=== PATIENT | female | born 1980 | race Caucasian/White ===

== ENCOUNTER 2019-09-05 15:35 | Observation (INO) | payer MEDICAID, SELFPAY ==
[2019-09-05 15:35] VITALS: BP 140/84; PULSE 110; RESP 24; TEMP 36.2; BMI 40.7
--- NOTE | 2019-09-05 15:56 | CT_ITS ---
STUDY: CT ABDOMEN AND PELVIS WITHOUT CONTRAST REASON FOR EXAM: Female, 39 years old. Flank pain. Currently taking antibiotics for urinary tract infection. History of prior appendectomy and fallopian tube removal. RADIATION DOSAGE (If Supplied By Facility): CTDIvol = ( 27.98 ) mGy, DLP = ( 1489.07 ) mGycm TECHNIQUE: Transaxial images were obtained from the dome of the diaphragm to the symphysis pubis without oral contrast, and without intravenous contrast. Sagittal and coronal images were reconstructed. Individualized dose optimization techniques were used for this CT. COMPARISON: None. FINDINGS: Mild posterior atelectatic changes. The visualized portions of the heart are within normal limits. Normal liver. Normal gallbladder and extrahepatic biliary system. Calcified granuloma of the spleen and a eggshell type calcification of the spleen measuring 1.8 cm Normal pancreas. Normal bilateral adrenal glands. Normal size of the right kidney. A numerous to 1 mm and dust like nonobstructing stones without hydronephrosis or ureteral stones. Normal size of the left kidney with numerous 1 to 2 mm and dust like nonobstructing renal stones without hydronephrosis or ureteral stones. Shallow cortical scar of the left kidney lower midpole. Normal visualized stomach. Normal small intestine. Normal colon. There is non-visualization of the appendix. Normal abdominal aorta. Normal inferior vena cava. Normal retroperitoneum. Nondistended urinary bladder. IUD in the lower endometrial space of the uterus. Surgical clips of the right adnexa. 7.5 x 2.0 x 4.2 cm cystic adnexal mass on the left. Minimal fatty umbilical hernia. Normal osseous structures. CT/Abdomen/Pelvis without Cont IMPRESSION: Multiple 1 to 2 mm and dust like nonobstructing calcifications of the kidneys bilaterally without hydronephrosis or ureteral stones. Nondistended urinary bladder. 7.5 x 2.0 x 4.2 cm tubular like structure of the left adnexa consistent with hydrosalpinx. Surgical clips of the right adnexa. Mirena IUD present in the uterus located in the lower endometrial space. Calcified granuloma of the spleen. Eggshell calcification of the spleen most likely secondary to old hematoma or related to granulomatous disease. Most likely insignificant finding. Electronically Signed: Catalina Rothman MD at 17:10 EST , Service support ,
--- NOTE | 2019-09-05 15:59 | ED.DCSUM_ITS ---
History of Present Illness Chief Complaint: Abd Pain Informant: Patient - Abdominal Pain/Flank Pain Onset: Yesterday Context: Gradual Onset Timing: Continuous Quality: Aching, Sharp Location: Right Flank Current Severity: Severe Maximum Severity: Severe Worsened by: Nothing Relieved by: Nothing - Nausea/Vomiting/Emesis GI Symptom: Nausea. Negative for: Vomiting Onset: Yesterday Associated Symptoms: Hematuria Narrative: Patient is a 39-year-old female presenting with persistent/worsening right flank pain. Patient was diagnosed with urinary tract infection at [facility] yesterday morning. Patient was started on Keflex, Pyridium and Tylenol. Patient states she is taking a total of 3 doses of Keflex. She notes that while she was there she was having a lot of right flank pain and that pain has persisted/worsened. She has associated nausea. Patient states the pain is constant. It does not wax and wane in intensity. She does have some radiation of pain down to her right thigh. She denies any abnormal vaginal bleeding or discharge. She states is not concern at all for sexually transmitted infection. Patient had negative urine test yesterday. Urinalysis reviewed which showed positive nitrates, moderate leukoesterase 5-10 white blood cells 2+ bacteria and loaded red blood cells. Patient notes she has a family history of kidney stones. She states in December she was admitted for sepsis but does not know what caused the sepsis. Patient denies any other complaints or concerns at this time. Past Medical History - Allergies and Home Meds Allergies/Adverse Reactions: Allergies No Known Allergies Allergy (Verified 09/05/19 15:38) Past Medical History: - - Sepsis, urinary tract infections Surgical History: - - Partial salpingectomy, D&C, appendectomy Lives: With Family Alcohol: None - Family History Maternal Family History: Reports: Diabetes Review of Systems General: Reports: Chills. Denies: Fever, Sweats Eyes: Denies: Visual changes - bilaterally, Diplopia ENT: Denies: Rhinorrhea, Sore throat Cardiovascular: Denies: Chest pain, Palpitations Respiratory: Denies: Dyspnea, Cough, Dyspnea on exertion Gastrointestinal: Reports: Abdominal pain - Right flank, Nausea. Denies: Vomiting, Diarrhea, Melena, Hematochezia Genitourinary: Reports: Hematuria. Denies: Dysuria, Frequency Musculoskeletal: Denies: Back pain, Extremity Pain Skin: Denies: Rash, Wounds Neurological: Denies: Headache, Weakness, Numbness Physical Exam Vital Signs/Narrative: Vital Signs Temp Pulse Resp BP 09/05/19 15:35 97.1 F L 110 H 24 H 140/84 H Inital Vital Signs reviewed: Yes General: Well nourished, Well developed, - - Patient moaning in bed Head: Normocephalic, Atraumatic Eyes: Perrl, EOMI ENT: Moist mucous membranes, No rhinorrhea Neck: Supple, Nontender Cardiovascular: Regular rate, Regular rhythm, No murmurs Respiratory: No distress, CTA bilaterally, Chest nontender Abdomen: Soft, Nondistended, Normal bowel sounds, Tender - right lateral/flank, suprapubic. Negative for: Guarding, Rebound tenderness Back: Nontender, Normal Inspection, CVA tenderness - right Extremities: Nontender, No edema Skin: Normal color, No rash Neurological: Alert, Oriented x3, Cranial nerves II-XII grossly intact, Normal Strength, Normal Sensation Psychological: Normal affect, - - anxious Diagnostic/Tx/Re-eval Clinical Impression(s) from Imaging Studies Abdomen/Pelvis CT 09/05/19 15:56 IMPRESSION: Multiple 1 to 2 mm and dust like nonobstructing calcifications of the kidneys bilaterally without hydronephrosis or ureteral stones. Nondistended urinary bladder. 7.5 x 2.0 x 4.2 cm tubular like structure of the left adnexa consistent with hydrosalpinx. Surgical clips of the right adnexa. Mirena IUD present in the uterus located in the lower endometrial space. Calcified granuloma of the spleen. Eggshell calcification of the spleen most likely secondary to old hematoma or related to granulomatous disease. Most likely insignificant finding. Electronically Signed: Catalina Rothman MD at 17:10 EST , Service support , Laboratory Data 09/05/19 09/05/19 09/05/19 15:50 15:50 15:50 WBC 10.4 RBC 4.18 L Hgb 9.3 L Hct 31.8 L MCV 76.1 L MCH 22.2 L MCHC 29.2 L RDW Std Deviation 44.9 H RDW Coeff of Andrew 16.5 H Plt Count 423 MPV 9.1 Immature Gran % (Auto) 0.800 Neut % (Auto) 71.1 H Lymph % (Auto) 15.1 L Eddy % (Auto) 8.8 Eos % (Auto) 3.5 Baso % (Auto) 0.7 Absolute Neuts (auto) 7.4 Absolute Lymphs (auto) 1.56 Nucleated RBC % 0 ESR Sodium 139 Potassium 3.6 Chloride 107 Carbon Dioxide 25.0 Anion Gap 7 BUN 9 Creatinine 0.65 Estim Creat Clear Calc 106.63 Est GFR (MDRD) Af Amer 132 Est GFR (MDRD) Non-Af 109 BUN/Creatinine Ratio 13.9 Glucose 102 Lactic Acid Calcium 8.5 Iron 16 L TIBC 489 H Iron Saturation 3.3 L Ferritin 6 L Total Bilirubin 0.20 AST 11 L ALT 18 Alkaline Phosphatase 92 C-React Prot Ext Range Total Protein 7.2 Albumin 3.5 Globulin 3.7 Albumin/Globulin Ratio 0.9 Urine Color Urine Clarity Urine pH Ur Specific [place] Urine Protein Urine Glucose (UA) Urine Ketones Urine Occult Blood Urine Nitrite Urine Bilirubin Urine Urobilinogen Ur Leukocyte Esterase Urine RBC Urine WBC Ur Squamous Epith Cells Urine Bacteria Urine Mucus Urine Test Chlam trachomat DNA PCR N.gonorrhoeae DNA (PCR) 09/05/19 09/05/19 09/05/19 15:50 15:50 16:00 WBC RBC Hgb Hct MCV MCH MCHC RDW Std Deviation RDW Coeff of Andrew Plt Count MPV Immature Gran % (Auto) Neut % (Auto) Lymph % (Auto) Eddy % (Auto) Eos % (Auto) Baso % (Auto) Absolute Neuts (auto) Absolute Lymphs (auto) Nucleated RBC % ESR 59 H Sodium Potassium Chloride Carbon Dioxide Anion Gap BUN Creatinine Estim Creat Clear Calc Est GFR (MDRD) Af Amer Est GFR (MDRD) Non-Af BUN/Creatinine Ratio Glucose Lactic Acid 1.0 Calcium Iron TIBC Iron Saturation Ferritin Total Bilirubin AST ALT Alkaline Phosphatase C-React Prot Ext Range 78.80 H Total Protein Albumin Globulin Albumin/Globulin Ratio Urine Color Urine Clarity Urine pH Ur Specific [place] Urine Protein Urine Glucose (UA) Urine Ketones Urine Occult Blood Urine Nitrite Urine Bilirubin Urine Urobilinogen Ur Leukocyte Esterase Urine RBC Urine WBC Ur Squamous Epith Cells Urine Bacteria Urine Mucus Urine Test Chlam trachomat DNA PCR N.gonorrhoeae DNA (PCR) 09/05/19 09/05/19 16:00 16:00 WBC RBC Hgb Hct MCV MCH MCHC RDW Std Deviation RDW Coeff of Andrew Plt Count MPV Immature Gran % (Auto) Neut % (Auto) Lymph % (Auto) Eddy % (Auto) Eos % (Auto) Baso % (Auto) Absolute Neuts (auto) Absolute Lymphs (auto) Nucleated RBC % ESR Sodium Potassium Chloride Carbon Dioxide Anion Gap BUN Creatinine Estim Creat Clear Calc Est GFR (MDRD) Af Amer Est GFR (MDRD) Non-Af BUN/Creatinine Ratio Glucose Lactic Acid Calcium Iron TIBC Iron Saturation Ferritin Total Bilirubin AST ALT Alkaline Phosphatase C-React Prot Ext Range Total Protein Albumin Globulin Albumin/Globulin Ratio Urine Color Yellow Urine Clarity Sl. Cloudy Urine pH 6.0 Ur Specific [place] 1.025 Urine Protein 30 H Urine Glucose (UA) Normal Urine Ketones Negative Urine Occult Blood 250 H Urine Nitrite Positive H Urine Bilirubin Negative Urine Urobilinogen Normal Ur Leukocyte Esterase 100 H Urine RBC > 100 SEEN Urine WBC 0-5 SEEN Ur Squamous Epith Cells 0-5 SEEN Urine Bacteria 1+ Urine Mucus 1+ Urine Test Negative Chlam trachomat DNA PCR Negative N.gonorrhoeae DNA (PCR) Negative - Medical Decision Making Patient is evaluated for persistent right flank pain and urinary symptoms. She appears significantly uncomfortable and is relatively normal physical exam. She does have tenderness in her suprapubic region and right flank. She is afebrile. His normal white blood cell count. Results are reviewed from yesterday at [facility] which shows urine consistent with UTI with positive nitrates and leuk esterase. It does not appear that a urine culture was sent. Urine was negative yesterday but is repeated and is still negative. Urinalysis continues to show nitrates and leuk esterase. Lactate is normal. Patient has had 3 doses of antibiotics before arrival but is having worsening pain. CT of the abdomen and pelvis is performed concerned for septic stone. This is largely negative. She does have an adnexal mass on the left side consistent with hydrosalpinx. On pelvic exam patient does not have any purulence vaginal discharge, cervical motion tenderness or left adnexal tenderness. Discussed with OB on-call, , who suggest patient receive a nonemergent pelvic ultrasound and will need outpatient follow-up for further evaluation. We agreed that this does not seem like the source of her pain as it is all clearly right-sided. Patient will be admitted to the hospital for further pain management and evaluation of the cause of her pain. This might be pyelonephritis but I worry that there could be another process yet to be determined. Patient is stable for the general medical floor at time of disposition. She is hemodynamically stable in the emergency room. She is given a dose of Toradol. ED Disposition - Plan for ED Patient: Disposition: Acute Care Hospital [facility] Diagnosis: Pyelonephritis, Hydrosalpinx
[2019-09-05] MEDS: Morphine 4 MG/ML Syringe IV ×3 (16:09→22:05)
[2019-09-05] MEDS: 0.9% Normal Saline 1,000 ML 1000 ML IV (16:09)
[2019-09-05] MEDS: Ondansetron 4 MG/2 ML Vial IV (16:09)
[2019-09-05 16:16] LABS: Color, Urine Yellow (Yellow); Glucose, Dipstick Normal (Normal); Ketone-Dipstick Negative (Negative); Leukocyte Esterase-Dipstick 100 /ul (Negative); Nitrite-Dipstick Positive (Negative); Occult Blood-Urine 250 /ul (Negative); Protein-Dipstick 30 mg/dl (Negative); Specific Gravity, Urine 1.025 (1.002-1.030); Urine Bilirubin Dipstick Negative (Negative); Urine Clarity Sl. Cloudy (Clear); Urine Urobilinogen Normal (Normal)
[2019-09-05 16:17] LABS: Internal QC Validated? YES +Cl - CLEAR BKGD; Pregnancy, Urine Negative Negative
[2019-09-05 16:25] LABS: Absolute Lymphocyte Count 1.56 X10^3/uL (0.83-4.51); Absolute Neutrophil Count 7.4 X10^3/uL (2.0-7.7); Basophil# 0.07 X10^3/uL; Basophil% 0.7 % (0-1); Eosinophil# 0.36 X10^3/uL; Eosinophils% 3.5 % (0-5); Hematocrit 31.8 % (37-47); Hemoglobin 9.3 g/dL (12.0-15.0); Lymphocyte # 1.56 X10^3/ul (4.0); Lymphocyte % 15.1 % (19-41); Mean Corp Hgb Conc 29.2 g/dL (32-36); Mean Corpuscular Hgb 22.2 pg (27.0-32.0); Mean Corpuscular Volume 76.1 fL (81-99); Mean Platelet Vol. 9.1 fl (6.2-12.0); Monocyte# 0.91 X10^3/uL; Monocyte% 8.8 % (0-10); NRBC Flagged by Analyzer 0 % (0-5); Neutrophil # 7.38 X10^3/uL (2.7-7.7); Neutrophil % 71.1 % (47-70); Platelet Count 423 K/mm3 (150-450); RBC Distribution Width CV 16.5 % (11.6-14.6); RBC Distribution Width SD 44.9 fl (35.1-43.9); Red Blood Count 4.18 M/mm3 (4.2-5.4); White Blood Count 10.4 K/mm3 (4.4-11.0)
[2019-09-05 16:34] LABS: Red Blood Cells-Urine > 100 SEEN /hpf (0-5); White Blood Cells 0-5 SEEN /hpf (0-5)
[2019-09-05 16:35] LABS: Bacteria 1+ /hpf (None Seen); Mucous, Urine 1+ /hpf (<or=2+); Squamous Epithelial Cells - UA 0-5 SEEN /hpf (5-10)
[2019-09-05 16:44] LABS: ALB/GLOB Ratio 0.9 RATIO (0.9-2.4); AST(SGOT) 11 U/L (15-37); Alanine Aminotransfer ALT/SGPT 18 U/L (13-56); Albumin, Serum 3.5 g/dL (3.2-5.0); Alkaline Phosphatase 92 U/L (45-117); Anion Gap 7 (5-15); BUN 9 mg/dL (7-18); BUN/Creat Ratio 13.9 RATIO (10-20); Calcium,Total 8.5 mg/dL (8.5-10.1); Chloride 107 mmol/L (98-107); Creatinine, Serum 0.65 mg/dL (0.55-1.02); EST Glomerular Filtration Rate 109 mL/min (>60); Est Glom Filt Rate - Afr Amer 132 mL/min (>60); Estimated Creatinine Clearance 106.63 ml/min; Globulin 3.7 g/dL (2.2-4.2); Glucose 102 mg/dL (74-106); Potassium 3.6 mmol/L (3.5-5.1); Protein, Total 7.2 g/dL (6.4-8.2); Sodium Level 139 mmol/L (136-145)
[2019-09-05] MEDS: Ceftriaxone 1 GM/50 ML BAG IV (19:04)
[2019-09-05 19:07] VITALS: BP 148/80; PULSE 87; RESP 16; O2SAT 97
[2019-09-05 19:55] LABS: Chlamydia Trachomatis by PCR Negative (Negative); Neisserai gonorrhoeae by PCR Negative (Negative); Probe Check PASS; Sample Adequacy Control PASS; Specimen Processing Control PASS
--- NOTE | 2019-09-05 20:02 | PCM.HP.STD ---
Problem List (1) Pyelonephritis Status: Acute (2) Hydrosalpinx Status: Acute (3) Morbid obesity Status: Chronic (4) Microcytic anemia Status: Chronic (5) Tobacco dependence due to cigarettes Status: Chronic (6) Nephrolithiasis Status: Chronic History of Present Illness Date of Admission: 09/05/19 Chief Complaint: R flank and R pelvic pain. The patient is a 39 year old F with a past medical history of morbid obesity, nephrolithiasis, urinary tract infections, nicotine dependence with cigarettes and microcytic anemia who presented to the emergency department at [facility] on 09/05/2019 complaining of severe right flank pain and right lower quadrant/pelvic pain. She was seen at the emergency department at [facility] on 09/04/2019 and was started on antibiotics for presumed cystitis. She has had 3 doses of Keflex. The pain is worse today and it is associated with nausea but no emesis. She denies fevers or shaking chills but has been taking Motrin for pain. Vital signs at presentation to the emergency department were temperature 97.1, pulse rate 110, blood pressure 140/84, respiratory rate 24 and she was 97% saturated on room air. Respiratory rate following control of pain dropped to 16. White blood cell count was 10.4 with 71% neutrophils. Hemoglobin was 9.3 with an MCV of 76.1 and platelets were within normal limits. BMP was unremarkable. LFTs were normal. A clean-catch urine showed a specific gravity of 1.025 and there were greater than 100 RBCs per high power field and 0-5 WBCs per high-power field with 1+ bacteria. Chlamydia trachomatis DNA PCR and Neisseria gonorrhea DNA PCR are pending. CT scan of the abdomen and pelvis without contrast showed multiple 1 to 2 mm nonobstructing calcifications of both kidneys and a nondistended urinary bladder. There was no evidence of hydronephrosis or ureteral stones. There was a 7.5 x 2 x 4.2 cm tubular masslike structure in the left adnexa consistent with hydrosalpinx. There are surgical clips in the right adnexa secondary to excision of the fallopian tube in the past due to ectopic . She was given a few doses of MS 4 mg and she is still c/o severe pain. She received Rocephin in the ED. She is being admitted for observation for suspected partially treated pyelonephritis. She has noticed blood in her urine but, she does not know if she is on her period at the present time. . Past Medical History Past Medical History (Chronic Problems): Chronic Problems Morbid obesity (Chronic) Microcytic anemia (Chronic) Tobacco dependence due to cigarettes (Chronic) Nephrolithiasis (Chronic) Allergies No Known Allergies Allergy (Verified 09/05/19 15:38) Surgical History: - - Partial salpingectomy R for ectopic , D&C, appendectomy Psychiatric History: No pertinent psych hx [employer]ORER [employer] History: - - Right salpingectomy for ectopic Lives: With Family Smoking Status: Current every day smoker Tobacco Use: Cigarettes Alcohol: None Drugs: None - *Family History Maternal History Items: Diabetes Review of Systems Constitutional: Reports: Anorexia, Malaise. Denies: Chills, Fever, Weight Change HEENT: Denies: Head Aches, Sinus Congestion, Sinus Drainage Cardiovascular: Denies: Chest Pain, Edema, Light Headedness, Palpitations Respiratory: Denies: Cough, Shortness of breath at rest, Sputum production Gastrointestinal: Reports: Abdominal Pain, Nausea. Denies: Diarrhea, Vomiting Genitourinary: Reports: Hematuria. Denies: Dysuria, Frequency Gynecological: Denies: Vaginal discharge Musculoskeletal: Denies: Joint Pain, Joint Tenderness Skin: Denies: Rash, Wounds Neurological: Denies: Numbness, Tingling, Focal weakness Psychiatric: Denies: Anxiety, Depression, Homicidal Ideations, Suicidal Ideations Endocrine: Denies: Change in Body Habitus Hematologic/ Lymphatic: Denies: Easy Bruising, Easy Bleeding, Hx of blood clot VTE Information - Inpt Only VTE Present on Admission: No VTE Mechan Device Prophylaxis: Knee High ARNAV Hose VTE Pharm Prophylaxis ordered?: Yes Patient Problems: Active and Suspected Problems Pyelonephritis (Acute) Hydrosalpinx (Acute) - Physical Exam Vitals/I&O's: Vital Signs Temp Pulse Resp BP Pulse Ox 97.1 F L 87 16 148/80 H 97 09/05/19 15:35 09/05/19 19:07 09/05/19 19:07 09/05/19 19:07 09/05/19 19:07 Oxygen Delivery Method Room Air Weight: 244 lb 11.41 oz Body Mass Index (BMI) 40.7 Intake and Output for Last 24 Hours 09/03/19 09/04/1909/05/19 23:59 23:59 23:59 Intake Total 50 / 50 Balance 50 / 50 General: Alert, Oriented x3, Cooperative, Well developed, Well nourished, - - She appears pale and to be in significant pain. HEENT: Atraumatic, PERRLA, EOMI, Normocephalic Oral: Dry Mucosa Neck: Supple, No JVD, Negative Carotid Bruits, No Nodes, No Nuchal Rigidity, Trachea Midline Lungs: Clear to auscultation, Normal air movement Cardiovascular: Regular rate, Regular Rhythm, Normal S1, Normal S2, Murmur - 1-2 systolic ejection murmur at the second right intercostal space with radiation to the lower left sternal border and apex, No rub noted, No Gallop Abdomen: Bowel Sounds Present, Soft, Non-Distended, Tender - She has costovertebral angle tenderness on the right and the pain radiates around the side and into the right side of the pelvis. No guarding with palpation but she did flinch with palpation of the right costovertebral angle. Extremities: No clubbing, No cyanosis, No edema, Capillary Refill Less than 3 Seconds Skin: No rashes, No breakdown Musculoskeletal: No Tenderness to Palpation of Joints or Extremities, No Muscle Wasting Neurological: Cranial nerves II-XII grossly intact, Neuro grossly intact Psych/Mental Status: Normal Affect, Appropriate Microbiology Past 72 Hours 09/05/19 18:10 Genital vaginal Wet Prep - Final Laboratory Results 09/05/19 15:50: WBC 10.4, RBC 4.18 L, Hgb 9.3 L, Hct 31.8 L, MCV 76.1 L, MCH 22.2 L, MCHC 29.2 L, RDW Std Deviation 44.9 H, RDW Coeff of Andrew 16.5 H, Plt Count 423, MPV 9.1, Immature Gran % (Auto) 0.800, Neut % (Auto) 71.1 H, Lymph % (Auto) 15.1 L, Summers % (Auto) 8.8, Eos % (Auto) 3.5, Baso % (Auto) 0.7, Absolute Neuts (auto) 7.4, Absolute Lymphs (auto) 1.56, Nucleated RBC % 0 09/05/19 15:50: Sodium 139, Potassium 3.6, Chloride 107, Carbon Dioxide 25.0, Anion Gap 7, BUN 9, Creatinine 0.65, Estim Creat Clear Calc 106.63, Est GFR (MDRD) Af Amer 132, Est GFR (MDRD) Non-Af 109, BUN/Creatinine Ratio 13.9, Glucose 102, Calcium 8.5, Total Bilirubin 0.20, AST 11 L, ALT 18, Alkaline Phosphatase 92, Total Protein 7.2, Albumin 3.5, Globulin 3.7, Albumin/Globulin Ratio 0.9 09/05/19 16:00: Lactic Acid 1.0 09/05/19 16:00: Urine Color Yellow, Urine Clarity Sl. Cloudy, Urine pH 6.0, Ur Specific [place] 1.025, Urine Protein 30 H, Urine Glucose (UA) Normal, Urine Ketones Negative, Urine Occult Blood 250 H, Urine Nitrite Positive H, Urine Bilirubin Negative, Urine Urobilinogen Normal, Ur Leukocyte Esterase 100 H, Urine RBC > 100 SEEN, Urine WBC 0-5 SEEN, Ur Squamous Epith Cells 0-5 SEEN, Urine Bacteria 1+, Urine Mucus 1+, Urine Test Negative 09/05/19 16:00: Chlam trachomat DNA PCR Negative, N.gonorrhoeae DNA (PCR) Negative Assessment/Plan All Active Problems Pyelonephritis (Acute) Hydrosalpinx (Acute) Impressions 1. Partially treated pyelonephritis - could she have passed a stone? 2. Hematuria-not sure if this is secondary to urinary pathology or she is on her. 3. Nephrolithiasis 4. Morbid obesity 5. Tobacco dependence with cigarettes 6. Positive family history of diabetes mellitus type 2 7. Microcytic anemia-suspect secondary to iron deficiency 8. Left hydrosalpinx - no pain on the Left side - can follow up with [employer] as an OP Continue Rocephin and add Levaquin until cultures of the urine are available. Straight cath for a UA to see if the hematuria persists with cath or if it is just in the clean catch it is more likely than not due to menstrual bleeding. Toradol, MS and tylenol PRN pain check iron studies Recheck CBC and BMP in the AM Repeat CT of the abdomen and pelvis with IV contrast. Code Visit OBSV E&M: 68981 Initial observation care L3
[2019-09-05] MEDS: Ketorolac 15 MG/ML Vial IV (20:23)
--- NOTE | 2019-09-05 20:51 | CT_ITS ---
STUDY: CT ABDOMEN AND PELVIS WITH CONTRAST REASON FOR EXAM: Female, 39 years old. Right flank pain, pelvic pain and nausea for 3 days. RADIATION DOSAGE (If Supplied By Facility): CTDIvol = ( 21.65 ) mGy, DLP = ( 2476.31 ) mGycm TECHNIQUE: Transaxial images were obtained from the dome of the diaphragm to the symphysis pubis without oral contrast. IV Isovue 370 100ML was administered. Sagittal and coronal images were reconstructed. Individualized dose optimization techniques were used for this CT. COMPARISON: Prior abdomen and pelvic CT exam of September 05, 2019 at 4:25 PM FINDINGS: Increasing posterior right basilar atelectasis and/or groundglass infiltrates. The visualized portions of the heart are within normal limits. Normal liver. Nondistended gallbladder. Calcified granuloma of the spleen and a shell calcification of the spleen. Normal pancreas. Normal bilateral adrenal glands. Normal size of the right kidney. With contrast present, only a 1 mm stone in the lower pole of the right kidney is visible. Negative for hydronephrosis or ureteral stones. Normal size of the left kidney. 1.5 cm mid pole cyst. There is shallow cortical scar of the mid pole. With contrast present only a 2 mm nonobstructing stone is seen in the lower pole. Negative for hydronephrosis or ureteral stones. Food filled stomach. Normal small intestine. Normal colon. There are surgical clips in the region of the appendix consistent with a prior appendectomy. Normal abdominal aorta. Normal inferior vena cava. Normal retroperitoneum. Nondistended urinary bladder. Mirena IUD in the lower endometrial space. Contrast enhancement demonstrates that in the left adnexa a substantial portion of the cystic appearing density on the prior exam is probably a normal left ovary with only a small amount of residual extra ovarian tissue. Normal size right ovary. Surgical clips in the right adnexa. Minimal fatty umbilical hernia. Normal osseous structures. CT/Abdomen/Pelvis WITH Contrast IMPRESSION: Normal size of the right kidney. Multiple small nonobstructing stones are still partly visible with contrast present. Negative for hydronephrosis or ureteral stones. Normal size of the left kidney. Few nonobstructing stones are still visible with contrast. Shallow cortical scar of the mid pole of the left kidney and a 1.5 cm mid pole cyst. Negative for hydronephrosis or ureteral stones. IUD in the lower uterus. Tubular cystlike structure of the left adnexa as described on the prior exam is probably largely a normal right ovary however there remains a small tubular extension which could be a dilated fallopian tube just above the left ovary.. Unremarkable right ovary. Surgical clips in the right adnexa. No acute bowel related findings. Negative for evidence of obstruction, perforation or inflammatory bowel changes. Status post appendectomy. No change in liver spleen pancreas or gallbladder since prior exam. No substantial changes in the abdominal or pelvic findings since the prior exam. Somewhat increased posterior bibasilar atelectatic changes and/or groundglass infiltrates. Negative for pleural effusion. Electronically Signed: Catalina Rothman MD at 23:43 EST , Service support ,
[2019-09-05 21:04] LABS: Ferritin 6 ng/mL (8-252); Iron 16 ug/dL (50-170); Iron Binding Capacity,Total 489 ug/dL (250-450); PERCENT IRON SATURATION 3.3 % (15.0-55.0)
[2019-09-05 21:08] VITALS: BMI 41.1; BMI 41.2
[2019-09-05 21:13] LABS: Erythrocyte Sedimentation Rate 59 mm/hr (0-20)
[2019-09-05 21:42] VITALS: BP 149/75; PULSE 89; RESP 18; TEMP 37.2; O2SAT 100
[2019-09-05] MEDS: 0.9% Saline Lock 10 ML Syringe IV ×2 (22:05→23:01)
[2019-09-05] MEDS: Ciprofloxacin 400 MG/200 ML BAG 200 MG IV (22:59)
[2019-09-05] MEDS: 0.9% Normal Saline 1,000 ML 150 ML IV (23:03)
[2019-09-06] MEDS: Ketorolac 15 MG/ML Vial IV ×4 (00:24→17:11)
[2019-09-06 00:33] LABS: Bacteria 0 SEEN /hpf (None Seen); Mucous, Urine 0 SEEN /hpf (<or=2+); Red Blood Cells-Urine 0 SEEN /hpf (0-5); White Blood Cells 0 SEEN /hpf (0-5)
[2019-09-06 00:36] LABS: Color, Urine Yellow (Yellow); Glucose, Dipstick Normal (Normal); Ketone-Dipstick Negative (Negative); Leukocyte Esterase-Dipstick Negative /ul (Negative); Nitrite-Dipstick Negative (Negative); Occult Blood-Urine 10 /ul (Negative); Protein-Dipstick 15 mg/dl (Negative); Specific Gravity, Urine 1.015 (1.002-1.030); Urine Bilirubin Dipstick Negative (Negative); Urine Clarity Sl. Cloudy (Clear); Urine Urobilinogen Normal (Normal); Urine pH 6.5 (5.0 - 8.0)
[2019-09-06 00:45] LABS: Squamous Epithelial Cells - UA 0-5 SEEN /hpf (5-10)
[2019-09-06 03:21] VITALS: BP 127/75; PULSE 97; RESP 18; TEMP 37.2; O2SAT 99
[2019-09-06] MEDS: oxyCODONE 5 MG Tablet 10 MG PO ×3 (03:23→20:30)
[2019-09-06] MEDS: 0.9% Normal Saline 1,000 ML 150 ML IV ×3 (05:13→20:25)
[2019-09-06] MEDS: 0.9% Saline Lock 10 ML Syringe IV (05:15)
[2019-09-06 05:47] LABS: Absolute Lymphocyte Count 1.31 X10^3/uL (0.83-4.51); Absolute Neutrophil Count 5.7 X10^3/uL (2.0-7.7); Basophil# 0.04 X10^3/uL; Basophil% 0.5 % (0-1); Eosinophil# 0.25 X10^3/uL; Eosinophils% 3.1 % (0-5); Hematocrit 29.5 % (37-47); Hemoglobin 8.5 g/dL (12.0-15.0); Lymphocyte # 1.31 X10^3/ul (4.0); Lymphocyte % 16.3 % (19-41); Mean Corp Hgb Conc 28.8 g/dL (32-36); Mean Corpuscular Hgb 22.2 pg (27.0-32.0); Mean Platelet Vol. 8.9 fl (6.2-12.0); Monocyte# 0.73 X10^3/uL; Monocyte% 9.1 % (0-10); NRBC Flagged by Analyzer 0 % (0-5); Neutrophil # 5.67 X10^3/uL (2.7-7.7); Neutrophil % 70.3 % (47-70); Platelet Count 345 K/mm3 (150-450); RBC Distribution Width CV 16.6 % (11.6-14.6); RBC Distribution Width SD 46.8 fl (35.1-43.9); Red Blood Count 3.83 M/mm3 (4.2-5.4); White Blood Count 8.1 K/mm3 (4.4-11.0)
[2019-09-06 06:18] LABS: Anion Gap 6 (5-15); BUN 8 mg/dL (7-18); BUN/Creat Ratio 15.1 RATIO (10-20); Calcium,Total 8.4 mg/dL (8.5-10.1); Chloride 107 mmol/L (98-107); Creatinine, Serum 0.53 mg/dL (0.55-1.02); EST Glomerular Filtration Rate 138 mL/min (>60); Est Glom Filt Rate - Afr Amer 167 mL/min (>60); Estimated Creatinine Clearance 130.77 ml/min; Glucose 113 mg/dL (74-106); Potassium 4.1 mmol/L (3.5-5.1); Sodium Level 138 mmol/L (136-145)
[2019-09-06 07:28] VITALS: BP 133/77; PULSE 91; RESP 18; TEMP 37.1; O2SAT 93
[2019-09-06] MEDS: Morphine 4 MG/ML Syringe IV (10:07)
[2019-09-06] MEDS: Ciprofloxacin 400 MG/200 ML BAG 200 MG IV ×2 (10:17→23:30)
[2019-09-06] MEDS: Enoxaparin 40 MG/0.4 ML Syringe SC (10:24)
[2019-09-06 11:45] VITALS: BP 132/68; PULSE 88; RESP 18; TEMP 36.7; O2SAT 98
--- NOTE | 2019-09-06 12:51 | PN_ITS ---
<Maral Souza - Last Filed: 09/06/19 12:57> Patient Problems: Active and Suspected Problems Pyelonephritis (Acute) Hydrosalpinx (Acute) Subjective: Patient seen and examined. Continues to complain of significant right pelvic pain. Denies fever, chills. Denies nausea, vomiting. - Physical Exam Vitals/I&O's: Vital Signs Temp Pulse Resp BP Pulse Ox 98.7 F 91 18 133/77 H 93 09/06/19 07:28 09/06/19 07:28 09/06/19 07:28 09/06/19 07:28 09/06/19 07:28 Oxygen Delivery Method Room Air Weight: 247 lb 8 oz Body Mass Index (BMI) 41.1 Intake and Output for Last 24 Hours 09/04/19 09/05/19 09/06/19 23:59 23:59 23:59 Intake Total 1455 / 1455 1385 / 1385 Output Total 300 / 300 700 / 700 Balance 1155 / 1155 685 / 685 General: Alert, Oriented x3, Cooperative HEENT: Atraumatic, PERRLA, EOMI, Normocephalic Neck: Supple, No JVD, Negative Carotid Bruits Lungs: Clear to auscultation, Normal air movement Cardiovascular: Regular rate, Regular Rhythm, Normal S1, Normal S2, No murmurs Abdomen: Bowel Sounds Present, Soft, Non-Distended, Obese, Tender - Right lower quadrant Extremities: No clubbing, No cyanosis, No edema, Capillary Refill Less than 3 Seconds Skin: No rashes, No breakdown Musculoskeletal: No Tenderness to Palpation of Joints or Extremities Neurological: Cranial nerves II-XII grossly intact, Neuro grossly intact Psych/Mental Status: Normal Affect, Appropriate Microbiology Past 72 Hours 09/05/19 16:00 Urine, Clean Catch Urine Culture - Preliminary Gram negative jordana 09/05/19 18:10 Genital vaginal Wet Prep - Final Laboratory Results 09/05/19 15:50: WBC 10.4, RBC 4.18 L, Hgb 9.3 L, Hct 31.8 L, MCV 76.1 L, MCH 22.2 L, MCHC 29.2 L, RDW Std Deviation 44.9 H, RDW Coeff of Andrew 16.5 H, Plt Count 423, MPV 9.1, Immature Gran % (Auto) 0.800, Neut % (Auto) 71.1 H, Lymph % (Auto) 15.1 L, Moca % (Auto) 8.8, Eos % (Auto) 3.5, Baso % (Auto) 0.7, Absolute Neuts (auto) 7.4, Absolute Lymphs (auto) 1.56, Nucleated RBC % 0 09/05/19 15:50: Sodium 139, Potassium 3.6, Chloride 107, Carbon Dioxide 25.0, Anion Gap 7, BUN 9, Creatinine 0.65, Estim Creat Clear Calc 106.63, Est GFR (MDRD) Af Amer 132, Est GFR (MDRD) Non-Af 109, BUN/Creatinine Ratio 13.9, Glucose 102, Calcium 8.5, Total Bilirubin 0.20, AST 11 L, ALT 18, Alkaline Phosphatase 92, Total Protein 7.2, Albumin 3.5, Globulin 3.7, Albumin/Globulin Ratio 0.9 09/05/19 15:50: Iron 16 L, TIBC 489 H, Iron Saturation 3.3 L, Ferritin 6 L 09/05/19 15:50: ESR 59 H 09/05/19 15:50: C-React Prot Ext Range 78.80 H 09/05/19 16:00: Lactic Acid 1.0 09/05/19 16:00: Urine Color Yellow, Urine Clarity Sl. Cloudy, Urine pH 6.0, Ur Specific [place] 1.025, Urine Protein 30 H, Urine Glucose (UA) Normal, Urine Ketones Negative, Urine Occult Blood 250 H, Urine Nitrite Positive H, Urine Bilirubin Negative, Urine Urobilinogen Normal, Ur Leukocyte Esterase 100 H, Urine RBC > 100 SEEN, Urine WBC 0-5 SEEN, Ur Squamous Epith Cells 0-5 SEEN, Urine Bacteria 1+, Urine Mucus 1+, Urine Test Negative 09/05/19 16:00: Chlam trachomat DNA PCR Negative, N.gonorrhoeae DNA (PCR) Negative 09/06/19 00:15: Urine Color Yellow, Urine Clarity Sl. Cloudy, Urine pH 6.5, Ur Specific [place] 1.015, Urine Protein 15 H, Urine Glucose (UA) Normal, Urine Ketones Negative, Urine Occult Blood 10 H, Urine Nitrite Negative, Urine Bilirub in Negative, Urine Urobilinogen Normal, Ur Leukocyte Esterase Negative, Urine RBC 0 SEEN, Urine WBC 0 SEEN, Ur Squamous Epith Cells 0-5 SEEN, Urine Bacteria 0 SEEN, Urine Mucus 0 SEEN 09/06/19 05:15: WBC 8.1, RBC 3.83 L, Hgb 8.5 L, Hct 29.5 L, MCV 77.0 L, MCH 22.2 L, MCHC 28.8 L, RDW Std Deviation 46.8 H, RDW Coeff of Andrew 16.6 H, Plt Count 345, MPV 8.9, Immature Gran % (Auto) 0.700, Neut % (Auto) 70.3 H, Lymph % (Auto) 16.3 L, Moca % (Auto) 9.1, Eos % (Auto) 3.1, Baso % (Auto) 0.5, Absolute Neuts (auto) 5.7, Absolute Lymphs (auto) 1.31, Nucleated RBC % 0 09/06/19 05:15: Sodium 138, Potassium 4.1, Chloride 107, Carbon Dioxide 25.0, Anion Gap 6, BUN 8, Creatinine 0.53 L, Estim Creat Clear Calc 130.77, Est GFR (MDRD) Af Amer 167, Est GFR (MDRD) Non-Af 138, BUN/Creatinine Ratio 15.1, Glucose 113 H, Calcium 8.4 L Current Medications Acetaminophen (Tylenol) 650 mg PO Q6H PRN PRN PRN Reason: Pain Score 1-3/Temp > 100.7 F Al Hydroxide/Mg Hydroxide (Mylanta Ii) 30 ml PO Q6H PRN PRN PRN Reason: Gastric Burning Enoxaparin Sodium (Lovenox) 40 mg SC DAILY@1000 [facility] Last Admin: 09/06/19 10:24 Dose: 40 mg Documented by: Sodium Chloride () 1,000 mls @ 150 mls/hr IV .Q6H40M [facility] Last Admin: 09/06/19 05:13 Dose: 150 mls/hr Documented by: Ceftriaxone Sodium (Rocephin) 1 gm in 50 mls @ 100 mls/hr IV Q24H [facility] Ciprofloxacin (Cipro) 400 mg in 200 mls @ 200 mls/hr IV Q12 [facility] Last Infusion: 09/06/19 11:27 Dose: Infused Documented by: Sodium Chloride () 250 mls @ 15 mls/hr IV .[id number] PRN PRN Reason: Saline Flush Ketorolac Tromethamine (Toradol) 15 mg IV Q6 [facility] Stop: 09/10/19 20:02 Last Admin: 09/06/19 11:21 Dose: 15 mg Documented by: Magnesium Hydroxide (Milk Of Magnesia) 30 ml PO DAILY PRN PRN PRN Reason: Constipation Morphine Sulfate () 4 mg IV Q3H PRN PRN PRN Reason: Pain Score 6-10/10 Last Admin: 09/06/19 10:07 Dose: 4 mg Documented by: Ondansetron HCl (Zofran) 4 mg IV Q8H PRN PRN PRN Reason: NAUSEA/VOMITING Oxycodone HCl (Oxyir) 10 mg PO Q4H PRN PRN PRN Reason: Pain Score 4-5/10 Last Admin: 09/06/19 03:23 Dose: 10 mg Documented by: Prochlorperazine Edisylate (Compazine Iv) 5 mg IV Q4H PRN PRN PRN Reason: Breakthrough nausea/vomiting Sodium Chloride () 10 - 40 ml IV UD PRN PRN Reason: SALINE FLUSH Last Admin: 09/06/19 05:15 Dose: 10 ml Documented by: Medical Necessity - Tobacco Use Smoking Status: Current every day smoker Tobacco Use: Cigarettes Assessment/Plan All Active Problems Pyelonephritis (Acute) Hydrosalpinx (Acute) 1. Acute pyelonephritis, failed outpatient treatment with Keflex-continue IV Cipro and IV Rocephin pending urine cultures. IV fluids. PRN pain regimen and PRN antiemetics. CT of abdomen and pelvis on admission shows multiple small nonobstructing stones. Negative for hydronephrosis or ureteral stones. 2. Left hydrosalpinx-as noted on CT. Outpatient follow-up with [employer] [facility]. 3. Microcytic anemia, iron deficiency anemia-begin ferrous sulfate 325 mg p.o. twice daily. 4. Tobacco dependence-encouraged smoking cessation. 5. Morbid obesity-encouraged diet lifestyle modifications. DVT prophylaxis-not indicated, low risk This patient was seen by Maral Souza NP-C under the supervision of Dr. Ingram. <Stanton Ingram F - Last Filed: 09/06/19 18:01> - Physical Exam Vitals/I&O's: Vital Signs Temp Pulse Resp BP Pulse Ox 98.3 F 80 18 157/73 H 97 09/06/19 17:24 09/06/19 17:24 09/06/19 17:24 09/06/19 17:24 09/06/19 17:24 Oxygen Delivery Method Room Air Weight: 247 lb 8 oz Body Mass Index (BMI) 41.1 Intake and Output for Last 24 Hours 09/04/19 09/05/19 09/06/19 23:59 23:59 23:59 Intake Total 1455 / 1455 3560 / 3560 Output Total 300 / 300 1400 / 1400 Balance 1155 / 1155 2160 / 2160 Microbiology Past 72 Hours 09/05/19 16:00 Urine, Clean Catch Urine Culture - Preliminary Gram negative jordana 09/05/19 18:10 Genital vaginal Wet Prep - Final Laboratory Results 09/05/19 15:50: Iron 16 L, TIBC 489 H, Iron Saturation 3.3 L, Ferritin 6 L 09/05/19 15:50: ESR 59 H 09/05/19 15:50: C-React Prot Ext Range 78.80 H 09/05/19 16:00: Chlam trachomat DNA PCR Negative, N.gonorrhoeae DNA (PCR) Negative 09/06/19 00:15: Urine Color Yellow, Urine Clarity Sl. Cloudy, Urine pH 6.5, Ur Specific [place] 1.015, Urine Protein 15 H, Urine Glucose (UA) Normal, Urine Ketones Negative, Urine Occult Blood 10 H, Urine Nitrite Negative, Urine Bilirubin Negative, Urine Urobilinogen Normal, Ur Leukocyte Esterase Negative, Urine RBC 0 SEEN, Urine WBC 0 SEEN, Ur Squamous Epith Cells 0-5 SEEN, Urine Bacteria 0 SEEN, Urine Mucus 0 SEEN 09/06/19 05:15: WBC 8.1, RBC 3.83 L, Hgb 8.5 L, Hct 29.5 L, MCV 77.0 L, MCH 22.2 L, MCHC 28.8 L, RDW Std Deviation 46.8 H, RDW Coeff of Andrew 16.6 H, Plt Count 345, MPV 8.9, Immature Gran % (Auto) 0.700, Neut % (Auto) 70.3 H, Lymph % (Auto) 16.3 L, Moca % (Auto) 9.1, Eos % (Auto) 3.1, Baso % (Auto) 0.5, Absolute Neuts (auto) 5.7, Absolute Lymphs (auto) 1.31, Nucleated RBC % 0 09/06/19 05:15: Sodium 138, Potassium 4.1, Chloride 107, Carbon Dioxide 25.0, Anion Gap 6, BUN 8, Creatinine 0.53 L, Estim Creat Clear Calc 130.77, Est GFR (MDRD) Af Amer 167, Est GFR (MDRD) Non-Af 138, BUN/Creatinine Ratio 15.1, Glucose 113 H, Calcium 8.4 L Current Medications Acetaminophen (Tylenol) 650 mg PO Q6H PRN PRN PRN Reason: Pain Score 1-3/Temp > 100.7 F Al Hydroxide/Mg Hydroxide (Mylanta Ii) 30 ml PO Q6H PRN PRN PRN Reason: Gastric Burning Enoxaparin Sodium (Lovenox) 40 mg SC DAILY@1000 [facility] Last Admin: 09/06/19 10:24 Dose: 40 mg Documented by: Ferrous Sulfate (Ferrous Sulfate) 325 mg PO 1200,1700 [facility] Last Admin: 09/06/19 17:10 Dose: 325 mg Documented by: Sodium Chloride () 1,000 mls @ 150 mls/hr IV .Q6H40M [facility] Last Admin: 09/06/19 13:13 Dose: 150 mls/hr Documented by: Ceftriaxone Sodium (Rocephin) 1 gm in 50 mls @ 100 mls/hr IV Q24H [facility] Ciprofloxacin (Cipro) 400 mg in 200 mls @ 200 mls/hr IV Q12 [facility] Last Infusion: 09/06/19 11:27 Dose: Infused Documented by: Sodium Chloride () 250 mls @ 15 mls/hr IV .[id number] PRN PRN Reason: Saline Flush Ketorolac Tromethamine (Toradol) 15 mg IV Q6 [facility] Stop: 09/10/19 20:02 Last Admin: 09/06/19 17:11 Dose: 15 mg Documented by: Magnesium Hydroxide (Milk Of Magnesia) 30 ml PO DAILY PRN PRN PRN Reason: Constipation Morphine Sulfate () 4 mg IV Q3H PRN PRN PRN Reason: Pain Score 6-10/10 Last Admin: 09/06/19 10:07 Dose: 4 mg Documented by: Ondansetron HCl (Zofran) 4 mg IV Q8H PRN PRN PRN Reason: NAUSEA/VOMITING Oxycodone HCl (Oxyir) 10 mg PO Q4H PRN PRN PRN Reason: Pain Score 4-5/10 Last Admin: 09/06/19 13:11 Dose: 10 mg Documented by: Prochlorperazine Edisylate (Compazine Iv) 5 mg IV Q4H PRN PRN PRN Reason: Breakthrough nausea/vomiting Sodium Chloride () 10 - 40 ml IV UD PRN PRN Reason: SALINE FLUSH Last Admin: 09/06/19 05:15 Dose: 10 ml Documented by: Code Visit Addendum: Dr. Ingram I personally examined the patient and reviewed the chart. I agree with the above. 39-year-old female was seen at [facility] for what appears to be a UTI, she was discharged on Keflex, and she took 3 doses of it before coming into this hospital. Unfortunately because of her antibiotics her urine cultures only growing a gram-negative jordana with less than the thousand CFU's, hopefully this is enough to get sensitivities. We will continue with Rocephin and Cipro for now she has no leukocytosis and is afebrile. CT scan of the abdomen pelvis was negative for any signs of pyelonephritis. Once we have sensitivities can plan for discharge. OBSV E&M: [id number] Subsequent observation care L2
[2019-09-06] MEDS: Ferrous Sulfate 325 MG Tablet PO (17:10)
[2019-09-06 17:24] VITALS: BP 157/73; PULSE 80; RESP 18; TEMP 36.8; O2SAT 97
[2019-09-06] MEDS: Ceftriaxone 1 GM/50 ML BAG IV (22:18)
[2019-09-06 22:31] VITALS: BP 142/85; PULSE 84; RESP 18; TEMP 37.3; O2SAT 94
[2019-09-07] MEDS: oxyCODONE 5 MG Tablet 10 MG PO ×2 (00:35→14:18)
[2019-09-07] MEDS: Ketorolac 15 MG/ML Vial IV ×3 (00:37→11:19)
[2019-09-07 03:45] VITALS: BP 128/54; PULSE 79; RESP 18; TEMP 37.2; O2SAT 92
[2019-09-07] MEDS: 0.9% Normal Saline 1,000 ML 150 ML IV (05:56)
[2019-09-07 06:24] LABS: Hemoglobin 8.4 g/dL (12.0-15.0); Mean Corpuscular Hgb 22.5 pg (27.0-32.0); Mean Corpuscular Volume 77.5 fL (81-99); Mean Platelet Vol. 9.1 fl (6.2-12.0); Platelet Count 365 K/mm3 (150-450); RBC Distribution Width CV 16.5 % (11.6-14.6); RBC Distribution Width SD 46.6 fl (35.1-43.9); Red Blood Count 3.74 M/mm3 (4.2-5.4); White Blood Count 6.8 K/mm3 (4.4-11.0)
[2019-09-07] MEDS: Ciprofloxacin 400 MG/200 ML BAG 200 MG IV (10:06)
[2019-09-07] MEDS: Enoxaparin 40 MG/0.4 ML Syringe SC (10:10)
[2019-09-07] MEDS: Ferrous Sulfate 325 MG Tablet PO (10:11)
[2019-09-07 10:20] VITALS: BP 121/71; PULSE 85; RESP 18; TEMP 37.3; O2SAT 97
--- NOTE | 2019-09-07 11:50 | PCM.DC ---
- Discharge Diagnoses Current Active Problems: Current Active and Chronic Problems Pyelonephritis (Acute) Hydrosalpinx (Acute) Morbid obesity (Chronic) Microcytic anemia (Chronic) Tobacco dependence due to cigarettes (Chronic) Nephrolithiasis (Chronic) You will use the following diet at home:: No restrictions Discharge Activity: Return to Normal Activity Call your doctor if you observe: Fever of 101 or Higher, Inability to urinate, - - Continued urinary sx Allergies/Adverse Reactions: Allergies No Known Allergies Allergy (Verified 09/05/19 15:38) Medications to take at Discharge Ciprofloxacin [Cipro] 500 mg PO BID #12 tab 09/07/19 Ferrous Sulfate 325 mg PO 1200,1700 #60 tab 09/07/19 The following prescriptions were given: Ciprofloxacin [Cipro] 500 mg PO BID #12 tab Transmission Status: Pending to [facility] Ferrous Sulfate 325 mg PO 1200,1700 #60 tab Transmission Status: Pending to [facility] Primary Care Physician: Lenny Perrin DO [Primary Care Provider] - Please follow up with your Primary Care Physician in: 3-5 days Test Results: Test results from this visit will be discussed in further detail at your follow-up appointment, if applicable. Proposed Discharge Date: 09/07/19
--- NOTE | 2019-09-07 11:56 | DS.PCM_ITS ---
<Maral Souza - Last Filed: 09/07/19 12:09> Discharge Date and Diagnosis Date of Admission: 09/05/19 Date of Discharge: 09/07/19 - Primary Discharge Diagnosis Active and Suspected Problems 1. Acute pyelonephritis, failed outpatient treatment with Keflex 2. Left hydrosalpinx 3. Microcytic anemia, iron deficiency anemia 4. Tobacco dependence 5. Morbid obesity - Secondary Discharge Diagnosis Chronic Problems Morbid obesity (Chronic) Microcytic anemia (Chronic) Tobacco dependence due to cigarettes (Chronic) Nephrolithiasis (Chronic) Hospital Course and Treatment Imaging Results: Diagnostic Data Abdomen/Pelvis CT 09/05/19 20:51 IMPRESSION: Normal size of the right kidney. Multiple small nonobstructing stones are still partly visible with contrast present. Negative for hydronephrosis or ureteral stones. Normal size of the left kidney. Few nonobstructing stones are still visible with contrast. Shallow cortical scar of the mid pole of the left kidney and a 1.5 cm mid pole cyst. Negative for hydronephrosis or ureteral stones. IUD in the lower uterus. Tubular cystlike structure of the left adnexa as described on the prior exam is probably largely a normal right ovary however there remains a small tubular extension which could be a dilated fallopian tube just above the left ovary.. Unremarkable right ovary. Surgical clips in the right adnexa. No acute bowel related findings. Negative for evidence of obstruction, perforation or inflammatory bowel changes. Status post appendectomy. No change in liver spleen pancreas or gallbladder since prior exam. No substantial changes in the abdominal or pelvic findings since the prior exam. Somewhat increased posterior bibasilar atelectatic changes and/or groundglass infiltrates. Negative for pleural effusion. Electronically Signed: Catalina Rothman MD at 23:43 EST , Service support , Operations: None Procedures: None Summary of Care Provided: The patient is a 39 year old F admitted 09/05/2019 due to right flank pain and right pelvic pain. 1. Acute pyelonephritis, failed outpatient treatment with Keflex-CT of abdomen and pelvis on admission shows multiple small nonobstructing stones. Negative for hydronephrosis or ureteral stones. IV Cipro and IV Rocephin during admission. Initial clean-catch urine culture shows mixed gram-positive and gram-negative organisms with 1-10,000 colony count. Straight cath urine exhibits no growth. Discharge on Cipro 500 mg twice daily to complete 7-day course of antibiotics. Follow-up with primary care provider in 3 to 5 days. No leukocytosis, no tachycardia. Patient did have low-grade temp. If patient has recurrent symptoms, recommend follow-up with female urology. 2. Left hydrosalpinx-as noted on CT. Outpatient follow-up with [employer]. 3. Microcytic anemia, iron deficiency anemia-begin ferrous sulfate 325 mg p.o. twice daily. 4. Tobacco dependence-encouraged smoking cessation. 5. Morbid obesity-encouraged diet lifestyle modifications. General: Alert, Oriented x3, Cooperative HEENT: Atraumatic, PERRLA, EOMI, Normocephalic Neck: Supple, No JVD, Negative Carotid Bruits Lungs: Clear to auscultation, Normal air movement Cardiovascular: Regular rate, Regular Rhythm, Normal S1, Normal S2, No murmurs Abdomen: Bowel Sounds Present, Soft, Non-Distended, Obese, Tender - Right lower quadrant Extremities: No clubbing, No cyanosis, No edema, Capillary Refill Less than 3 Seconds Skin: No rashes, No breakdown Musculoskeletal: No Tenderness to Palpation of Joints or Extremities Neurological: Cranial nerves II-XII grossly intact, Neuro grossly intact Psych/Mental Status: Normal Affect, Appropriate Patient seen and examined prior to discharge. Physical assessment as noted above. Patient is stable for discharge with follow up recommendations as noted above. This patient was seen by ORIN Hidalgo under the supervision of Dr. Ingram. - Physical Exam Vitals/I&O's: Vital Signs Temp Pulse Resp BP Pulse Ox 99.1 F 85 18 121/71 H 97 09/07/19 10:20 09/07/19 10:20 09/07/19 10:20 09/07/19 10:20 09/07/19 10:20 Oxygen Delivery Method Room Air Weight: 247 lb 8 oz Body Mass Index (BMI) 41.1 Intake and Output for Last 24 Hours 09/05/19 09/06/19 09/07/19 23:59 23:59 23:59 Intake Total 1455 / 1455 5385 / 5385 1227.5 / 1227.5 Output Total 300 / 300 1400 / 1400 1350 / 1350 Balance 1155 / 1155 3985 / 3985 -122.5 / -122.5 Microbiology Past 72 Hours 09/06/19 00:15 Urine, Catheterized Urine Culture - Preliminary Culture exhibits no growth. 09/05/19 16:00 Urine, Clean Catch Urine Culture - Final Mixed Gram Pos & Gram Neg Org 09/05/19 18:10 Genital vaginal Wet Prep - Final Laboratory Results 09/07/19 05:46: WBC 6.8, RBC 3.74 L, Hgb 8.4 L, Hct 29.0 L, MCV 77.5 L, MCH 22.5 L, MCHC 29.0 L, RDW Std Deviation 46.6 H, RDW Coeff of Andrew 16.5 H, Plt Count 365, MPV 9.1 Current Medications Acetaminophen (Tylenol) 650 mg PO Q6H PRN PRN PRN Reason: Pain Score 1-3/Temp > 100.7 F Al Hydroxide/Mg Hydroxide (Mylanta Ii) 30 ml PO Q6H PRN PRN PRN Reason: Gastric Burning Enoxaparin Sodium (Lovenox) 40 mg SC DAILY@1000 [facility] Last Admin: 09/07/19 10:10 Dose: 40 mg Documented by: Ferrous Sulfate (Ferrous Sulfate) 325 mg PO 1200,1700 [facility] Last Admin: 09/07/19 10:11 Dose: 325 mg Documented by: Sodium Chloride () 1,000 mls @ 150 mls/hr IV .Q6H40M [facility] Last Admin: 09/07/19 05:56 Dose: 150 mls/hr Documented by: Ceftriaxone Sodium (Rocephin) 1 gm in 50 mls @ 100 mls/hr IV Q24H [facility] Last Infusion: 09/06/19 22:50 Dose: Infused Documented by: Ciprofloxacin (Cipro) 400 mg in 200 mls @ 200 mls/hr IV Q12 [facility] Last Infusion: 09/07/19 11:06 Dose: Infused Documented by: Sodium Chloride () 250 mls @ 15 mls/hr IV .[id number] PRN PRN Reason: Saline Flush Ketorolac Tromethamine (Toradol) 15 mg IV Q6 [facility] Stop: 09/10/19 20:02 Last Admin: 09/07/19 11:19 Dose: 15 mg Documented by: Magnesium Hydroxide (Milk Of Magnesia) 30 ml PO DAILY PRN PRN PRN Reason: Constipation Morphine Sulfate () 4 mg IV Q3H PRN PRN PRN Reason: Pain Score 6-10/10 Last Admin: 09/06/19 10:07 Dose: 4 mg Documented by: Ondansetron HCl (Zofran) 4 mg IV Q8H PRN PRN PRN Reason: NAUSEA/VOMITING Oxycodone HCl (Oxyir) 10 mg PO Q4H PRN PRN PRN Reason: Pain Score 4-5/10 Last Admin: 09/07/19 00:35 Dose: 10 mg Documented by: Prochlorperazine Edisylate (Compazine Iv) 5 mg IV Q4H PRN PRN PRN Reason: Breakthrough nausea/vomiting Sodium Chloride () 10 - 40 ml IV UD PRN PRN Reason: SALINE FLUSH Last Admin: 09/06/19 05:15 Dose: 10 ml Documented by: Discharge Diet: No Restrictions Discharge Activity: Return to Normal Activity Call your doctor if you observe: Fever of 101 or Higher, Inability to urinate, - - Continued urinary sx Home Medications: Medications to take at Discharge Ciprofloxacin [Cipro] 500 mg PO BID #12 tab 09/07/19 Ferrous Sulfate 325 mg PO 1200,1700 #60 tab 09/07/19 Following Prescrptions Were Given to Patient: Ciprofloxacin [Cipro] 500 mg PO BID #12 tab Transmission Status: Received by [facility] Ferrous Sulfate 325 mg PO 1200,1700 #60 tab Transmission Status: Received by [facility] Primary Care Physician: Lenny Perrin DO [Primary Care Provider] - Please follow up with your Primary Care Physician in: 3-5 days Disposition: Home Minutes spent on discharge:: 35 Patient Condition:: Stable Medical Necessity - Tobacco Use Smoking Status: Current every day smoker Tobacco Use: Cigarettes Meaningful Use Info Meaningful Use Diagnoses (Choose all that apply): None applicable <Stanton Ingram F - Last Filed: 09/07/19 14:59> Discharge Date and Diagnosis - Secondary Discharge Diagnosis Chronic Problems Morbid obesity (Chronic) Microcytic anemia (Chronic) Tobacco dependence due to cigarettes (Chronic) Nephrolithiasis (Chronic) Hospital Course and Treatment Summary of Care Provided: The patient is a 39 year old F [] - Physical Exam Vitals/I&O's: Vital Signs Temp Pulse Resp BP Pulse Ox 99.1 F 85 18 121/71 H 97 09/07/19 10:20 09/07/19 10:20 09/07/19 10:20 09/07/19 10:20 09/07/19 10:20 Oxygen Delivery Method Room Air Weight: 247 lb 8 oz Body Mass Index (BMI) 41.1 Intake and Output for Last 24 Hours 09/05/19 09/06/19 09/07/19 23:59 23:59 23:59 Intake Total 1455 / 1455 5385 / 5385 2227.5 / 2227.5 Output Total 300 / 300 1400 / 1400 1350 / 1350 Balance 1155 / 1155 3985 / 3985 877.5 / 877.5 Microbiology Past 72 Hours 09/06/19 00:15 Urine, Catheterized Urine Culture - Preliminary Culture exhibits no growth. 09/05/19 16:00 Urine, Clean Catch Urine Culture - Final Mixed Gram Pos & Gram Neg Org 09/05/19 18:10 Genital vaginal Wet Prep - Final Laboratory Results 09/07/19 05:46: WBC 6.8, RBC 3.74 L, Hgb 8.4 L, Hct 29.0 L, MCV 77.5 L, MCH 22.5 L, MCHC 29.0 L, RDW Std Deviation 46.6 H, RDW Coeff of Andrew 16.5 H, Plt Count 365, MPV 9.1 Current Medications Acetaminophen (Tylenol) 650 mg PO Q6H PRN PRN PRN Reason: Pain Score 1-3/Temp > 100.7 F Al Hydroxide/Mg Hydroxide (Mylanta Ii) 30 ml PO Q6H PRN PRN PRN Reason: Gastric Burning Enoxaparin Sodium (Lovenox) 40 mg SC DAILY@1000 [facility] Last Admin: 09/07/19 10:10 Dose: 40 mg Documented by: Ferrous Sulfate (Ferrous Sulfate) 325 mg PO 1200,1700 [facility] Last Admin: 09/07/19 10:11 Dose: 325 mg Documented by: Sodium Chloride () 1,000 mls @ 150 mls/hr IV .Q6H40M [facility] Last Infusion: 09/07/19 12:37 Dose: Infused Documented by: Ceftriaxone Sodium (Rocephin) 1 gm in 50 mls @ 100 mls/hr IV Q24H [facility] Last Infusion: 09/06/19 22:50 Dose: Infused Documented by: Ciprofloxacin (Cipro) 400 mg in 200 mls @ 200 mls/hr IV Q12 [facility] Last Infusion: 09/07/19 11:06 Dose: Infused Documented by: Sodium Chloride () 250 mls @ 15 mls/hr IV .[id number] PRN PRN Reason: Saline Flush Ketorolac Tromethamine (Toradol) 15 mg IV Q6 [facility] Stop: 09/10/19 20:02 Last Admin: 09/07/19 11:19 Dose: 15 mg Documented by: Magnesium Hydroxide (Milk Of Magnesia) 30 ml PO DAILY PRN PRN PRN Reason: Constipation Morphine Sulfate () 4 mg IV Q3H PRN PRN PRN Reason: Pain Score 6-10/10 Last Admin: 09/06/19 10:07 Dose: 4 mg Documented by: Ondansetron HCl (Zofran) 4 mg IV Q8H PRN PRN PRN Reason: NAUSEA/VOMITING Oxycodone HCl (Oxyir) 10 mg PO Q4H PRN PRN PRN Reason: Pain Score 4-5/10 Last Admin: 09/07/19 14:18 Dose: 10 mg Documented by: Prochlorperazine Edisylate (Compazine Iv) 5 mg IV Q4H PRN PRN PRN Reason: Breakthrough nausea/vomiting Sodium Chloride () 10 - 40 ml IV UD PRN PRN Reason: SALINE FLUSH Last Admin: 09/06/19 05:15 Dose: 10 ml Documented by: Code Visit Addendum: Dr. Ingram I personally examined the patient and reviewed the chart. I agree with the above. 39-year-old female who was seen at [facility] for UTI was discharged on Keflex. She did come in after having taken 3 doses and therefore her urine culture here has been negative. Unfortunately [facility] and I will ordered a urine culture therefore we do not have any culture data. However she is afebrile without a leukocytosis and she is not tachycardic or having any other signs of infection at this time. We will plan for discharge home with Cipro p.o. and acetaminophen/ibuprofen for pain control. She will follow-up with her primary care doctor in [address] scan was unremarkable on admission. OBSV E&M: [id number] Observation care discharge
== END 2019-09-07 14:30 | disposition home or self-care (01) ==
LOC: ED 16:12 → MS3 20:03
PROVIDERS: Nurse Practitioner Family; Admitting Provider Internal Medicine; Emergency Provider Emergency Medicine; Family Provider Family Medicine; PCP Family Medicine; Referring Provider Internal Medicine; Visit Provider Family Medicine
DX: N10 Acute pyelonephritis (principal); Z23 Encounter for immunization; N70.11 Chronic salpingitis; D50.9 Iron deficiency anemia, unspecified; E66.01 Morbid (severe) obesity due to excess calories; Z68.41 Body mass index [BMI] 40.0-44.9, adult; Z71.3 Dietary counseling and surveillance; F17.210 Nicotine dependence, cigarettes, uncomplicated; N20.0 Calculus of kidney
CPT/HCPCS: 36415; 74176; 74177; 80048; 80053; 81001; 81025; 82728; 83540; 83550; 83605; 85025; 85027; 85652; 86140; 87086; 87088; 87210; 87491; 87591; 96361; 96365; 96366; 96367; 96372; 96375; 96376; 99218; 99284; 99406; J7030; Q9967; 90686; A4216; G0378; J0744; J2405